=== PATIENT | female | born 1945 | race Hispanic/Latino ===

== ENCOUNTER 2017-07-20 11:42 | Emergency (ER) | payer MEDICARE ==
[2017-07-20] MEDS ORDERED: SUCRALFATE 1 GM TABLET ONE (12:00)
[2017-07-20] MEDS ORDERED: FAMOTIDINE/PF 20 MG/2 ML VIAL IV ONE (12:01)
[2017-07-20 12:36] LABS: BASOPHILS % (AUTO) 0.5 % (0.0-5.0); EOSINOPHILS % (AUTO) 3.3 % (0.0-8.0); LYMPHOCYTES % (AUTO) 17.5 % (21.0-51.0); MEAN CORPUSCULAR HGB CONC 34.8 g/dL (32.0-36.0); MEAN CORPUSCULAR VOLUME 91.8 fL (79-99); MONOCYTES % (AUTO) 8.2 % (3.0-13.0); NEUTROPHILS % (AUTO) 70.5 % (40.0-77.0); PLATELET COUNT (AUTO) 236 K/uL (130-400); RED BLOOD CELL COUNT(AUTO) 3.92 MIL/uL (4.00-5.50); RED CELL DISTRIBUTION WIDTH 12.9 % (11.0-15.5); WHITE BLOOD COUNT (AUTO) 9.3 K/uL (4.8-10.8)
[2017-07-20 12:48] LABS: CARBON DIOXIDE 30 mmol/L (21-32); CHLORIDE 105 mmol/L (101-111); GLOMERULAR FILTR. RATE CALC 58 mL/min (>60); GLUCOSE,RANDOM 92 mg/dL (70-105); POTASSIUM 4.1 mmol/L (3.5-5.1); SODIUM SERUM 140 mmol/L (136-145); UREA NITROGEN, BLOOD 23 mg/dL (7-18)
[2017-07-20 12:50] LABS: INR 0.93 (0.85-1.15); PARTIAL THROMBOPLASTIN TIME 24.2 SEC (26.3-35.5); PROTHROMBIN TIME 9.8 SEC (9.6-11.6)
[2017-07-20 13:02] LABS: ALANINE AMINOTRANSFERASE 31 U/L (12-78); ALBUMIN 3.1 g/dL (3.5-5.0); AMYLASE 50 U/L (25-115); ASPARTATE AMINOTRANSFERASE 41 U/L (10-37); BILIRUBIN,TOTAL 0.6 mg/dL (0.2-1.0); CREATINE KINASE MB < 0.5 ng/mL (0.5-3.6); CREATINE KINASE, TOTAL 43 U/L (21-232); LIPASE 196 U/L (114-286); TOTAL PROTEIN, SERUM 7.1 g/dL (6.0-8.3)
== END 2017-07-20 17:28 | disposition left against medical advice (07) ==
LOC: EDH 11:42
DX: R10.12 Left upper quadrant pain (principal); R07.9 Chest pain, unspecified; R06.02 Shortness of breath; E78.5 Hyperlipidemia, unspecified; I10 Essential (primary) hypertension; E07.9 Disorder of thyroid, unspecified; Z53.21 Procedure and treatment not carried out due to patient leaving prior to being seen by health care provider; Z90.49 Acquired absence of other specified parts of digestive tract; Z79.899 Other long term (current) drug therapy
CPT/HCPCS: 36415; 71046; 80053; 82150; 82550; 82553; 83690; 84484 ×2; 85025; 85610; 85730; 93005 ×2; 96374; 99285; J3490